=== PATIENT | male | born 1995 | race Asian ===

== ENCOUNTER → 2021-09-29 | Outpatient (CLI) | payer OTHER | LOC: M PLAIMG 07:36 | PROVIDERS: ATTEND Otolaryngology | DX: J32.9 Chronic sinusitis, unspecified (principal) ==

== ENCOUNTER 2021-11-18 06:24 | Day surgery (SDC) | payer OTHER ==
[~2021-11-18] VITALS: Ht 175.3 cm; Wt 78.7 kg
[~2021-11-18 06:24] MED LIST: LR 1,000 ML IV ONE
[2021-11-18] MEDS ORDERED: propofoL 200 MG/20 ML VIAL As Ordered ONE (06:58)
[2021-11-18] MEDS ORDERED: LIDOCAINE 2% 100MG/5ML SDV (FOR ANES.) As Ordered ONE (06:58)
[2021-11-18] MEDS ORDERED: ROCURONIUM BROMIDE 50 MG/5 ML VIAL As Ordered ONE (06:58)
[2021-11-18] MEDS ORDERED: fentaNYL 100 MCG/2 ML INJECTION As Ordered ONE (07:01)
[2021-11-18] MEDS ORDERED: MIDAZOLAM INJ 2MG/2ML VIAL (J2250 PER 1MG) As Ordered ONE (07:01)
[2021-11-18] MEDS ORDERED: LIDOCAINE W/EPINEPHRINE 1% 20ML VIAL As Ordered ONE (07:16)
[2021-11-18] MEDS ORDERED: METHYLENE BLUE 0.5% (5MG/ML) 10 ML AMP (PROVAYBLUE) As Ordered ONE (07:16)
[2021-11-18] MEDS ORDERED: OXYMETAZOLINE 0.05% NASAL SPRAY (AFRIN) As Ordered ONE ×3 (07:17→08:37)
[2021-11-18] MEDS ORDERED: COCAINE 4% 4ML NASAL SOLUTION BTL As Ordered ONE (07:17)
[2021-11-18] MEDS ORDERED: LABETALOL 100MG/20ML VIAL As Ordered ONE (08:33)
[2021-11-18] MEDS ORDERED: ONDANSETRON 4MG/2ML VIAL As Ordered ONE (08:36)
[2021-11-18] MEDS ORDERED: SUGAMMADEX SODIUM 500 MG/5 ML VIAL (BRIDION) As Ordered ONE (08:54)
[2021-11-18] MEDS ORDERED: ePHEDrine SULFATE 25 MG/5 ML(5MG/ML) SYRINGE As Ordered ONE (09:49)
[2021-11-18] MEDS ORDERED: PHENYLephrine 500MCG 5ML (100MCG/ML) SYRINGE As Ordered ONE (09:49)
[2021-11-18] MEDS ORDERED: PERCOCET 5MG/325MG TAB PO PRN (09:55)
[2021-11-18] MEDS ORDERED: fentaNYL 100 MCG/2 ML INJECTION IV PRN (09:55)
[2021-11-18] MEDS ORDERED: ONDANSETRON 4MG/2ML VIAL IV PRN ×2 (09:55→10:05)
[2021-11-18] MEDS ORDERED: LR 1,000 ML IV SCH ×2 (09:55→10:00)
[2021-11-18] MEDS ORDERED: ANEXSIA, NORCO 7.5MG/325MG TABLET(HYDROCODONE/APAP) PO PRN (10:05)
[2021-11-18] MEDS ORDERED: MORPHINE 10 MG/ML 1ML VIAL (J2270) IV PRN (10:05)
[2021-11-18] MEDS ORDERED: dexameTHASONE 4 MG/ML 1ML VIAL (J1100 PER 1MG) As Ordered ONE (11:12)
[2021-11-18 11:38] VITALS: BP 107/62
== END 2021-11-18 11:45 | disposition home or self-care (01) ==
LOC: M SDC 06:24
PROVIDERS: ATTEND Otolaryngology
DX: J32.9 Chronic sinusitis, unspecified (principal)
CPT/HCPCS: 30999; 31255; 31267; 31296; 61782; 88305; C9046; J1100; J2250; J2370; J2405; J3010; Q9968

== ENCOUNTER → 2022-01-09 | Outpatient (CLI) | payer OTHER | LOC: M PLAIMG 15:32 | PROVIDERS: ATTEND Family Medicine | DX: S63.591A Other specified sprain of right wrist, initial encounter (principal); X58.XXXA Exposure to other specified factors, initial encounter; Y92.9 Unspecified place or not applicable; Y93.9 Activity, unspecified; Y99.9 Unspecified external cause status; M67.431 Ganglion, right wrist ==

== ENCOUNTER → 2022-09-01 | Outpatient (CLI) | payer OTHER | LOC: M RAD 15:16 | PROVIDERS: ATTEND Otolaryngology | DX: J32.9 Chronic sinusitis, unspecified (principal) ==

== ENCOUNTER 2022-09-06 21:31 | Emergency (ER) | payer OTHER ==
[~2022-09-06] VITALS: Ht 174 cm; Wt 80.9 kg
[2022-09-06 22:36] LABS: BASO % 0.7 % (0.0-1.0); EOS # 0.1 10^3/uL (0.0-0.5); EOS % 1.2 % (0.0-3.0); HEMATOCRIT 49.3 % (42.0-52.0); HEMOGLOBIN 16.5 g/dl (13.5-17.5); LYMPH # 2.3 10^3/uL (1.5-5.0); LYMPH % 39.6 % (24.0-44.0); MEAN CORPUSCULAR HEMOGLOBIN 29.3 pg (27.0-33.0); MEAN CORPUSCULAR HGB CONC 33.5 g/dl (32.0-36.5); MEAN CORPUSCULAR VOLUME 87.4 fl (80.0-96.0); MONO # 0.4 10^3/uL (0.0-0.8); MONO % 6.6 % (2.0-8.0); NEUTROPHILS % 51.7 % (36.0-66.0); PLATELET COUNT, AUTOMATED 196 10^3/uL (150-450); RED BLOOD COUNT 5.64 10^6/uL (4.30-6.10); WHITE BLOOD COUNT 5.8 10^3/uL (4.0-10.0)
[2022-09-07 00:13] LABS: ALBUMIN 4.8 G/DL (3.2-5.2); ALT/SGPT 46 U/L (7.0-40); BILIRUBIN,DIRECT 0.2 MG/DL (<0.4); BILIRUBIN,TOTAL 0.6 MG/DL (0.3-1.2); BLOOD UREA NITROGEN 15 MG/DL (9-23); CALCIUM LEVEL 9.4 MG/DL (8.5-10.1); CARBON DIOXIDE LEVEL 29 MMOL/L (20-31); CHLORIDE LEVEL 103 MMOL/L (98-107); CK-MB VALUE MASS 1.3 NG/ML (<3.6); CPK CREATINE PHOSPHOKINASE 626 U/L (46-171); CREATININE FOR GFR 1.18 MG/DL (0.70-1.30); GLOMERULAR FILTRATION RATE > 60.0 (>60); GLUCOSE, FASTING 57 MG/DL (60-100); LIPASE 54 U/L (12-53); POTASSIUM SERUM 4.7 MMOL/L (3.5-5.1); SODIUM LEVEL 141 MMOL/L (136-145); THYROID STIMULATING HORMONE 3.368 uIU/ML (0.55-4.78); TOTAL PROTEIN 7.5 G/DL (5.7-8.2)
[2022-09-07] MEDS ORDERED: GI COCKTAIL 50ML BTL(HYOSCYAMINE/MAALOX/LIDOCAINE VISCOUS)(1:3:1) PO ONE (06:30)
[2022-09-07] MEDS ORDERED: KETOROLAC 30 MG/ML 1ML VIAL IV ONE (06:30)
[2022-09-07] MEDS ORDERED: NS 1,000 ML IV ONE (06:30)
[2022-09-07] MEDS ORDERED: METOCLOPRAMIDE INJ 10MG/2ML VIAL (J2765 PER 1) IV ONE (06:30)
[2022-09-07 08:05] LABS: CK-MB VALUE MASS 1.2 NG/ML (<3.6); MB/CK RELATIVE INDEX 0.27 (< OR =4)
[2022-09-07 08:30] VITALS: BP 123/64
[2022-09-07 10:34] LABS: GC DNA AMPLIFICATION NEGATIVE (NEGATIVE)
== END 2022-09-07 08:56 | disposition home or self-care (01) ==
LOC: EDBD 21:31 → M ED 21:32
DX: R07.89 Other chest pain (principal); R51.9 Headache, unspecified; R74.8 Abnormal levels of other serum enzymes
CPT/HCPCS: 71046; 80048; 80076; 81002; 82550; 82553; 83690; 84443; 84484; 85025; 87661; 87810; 87850; 93005; 96374; 96375; 99285; J1885; J2765